=== PATIENT | male | born 1965 | race Caucasian/White ===

== ENCOUNTER 2024-03-23 10:37 | Day surgery (SDC) | payer OTHER ==
[~2024-03-23] VITALS: Ht 182.9 cm; Wt 63.3 kg
[~2024-03-23 10:37] MED LIST: LR 1,000 ML IV SCH
[2024-03-23] MEDS ORDERED: NORVASC 5MG5 MG/TAB PO (11:12)
[2024-03-23] MEDS ORDERED: PREDNISONE 5MG5 MG PO (11:12)
[2024-03-23] MEDS ORDERED: PERCOCET 325 MG1 TA2 PO (11:13)
[2024-03-23] MEDS ORDERED: DECADRON 4MG TAB4 MG PO (11:14)
[2024-03-23 11:39] VITALS: BP 144/81; PULSE 93; TEMP 98.1
[2024-03-23] MEDS ORDERED: Glycopyrrolate 0.2 MG/ML 1 ML VIAL ONE (12:03)
[2024-03-23] MEDS ORDERED: Ondansetron 4 MG/2 ML VIAL ONE (12:03)
[2024-03-23] MEDS ORDERED: NS 10 ML IV ONE (12:03)
[2024-03-23] MEDS ORDERED: Midazolam 2 MG/2 ML VIAL ONE (12:04)
[2024-03-23] MEDS ORDERED: fentaNYL 50 MCG/ML 2 ML VIAL ONE (12:04)
[2024-03-23] MEDS ORDERED: BUPivacaine PF 0.5% w EPI (1:200,000) 10 ML VIAL IJ ONE (13:00)
[2024-03-23 13:36] VITALS: BP 118/71; PULSE 96; TEMP 97.6
[2024-03-23 13:51] VITALS: BP 129/76; PULSE 89
[2024-03-23 14:06] VITALS: BP 136/77; PULSE 95
--- NOTE | 2024-03-23 15:04 | NUR ---
1336: PT TO [facility]AY 4 PER CART FROM OR. REPORT RECEIVED. VSS. RIGHT CHEST PORT INSERTION SITE INCISION C/D/I. CLOSED WITH SKIN GLUE. PT ALERT AND ORIENTED. DENIES PAIN OR NAUSEA. REQUESTING COFFEE AND CRACKERS. PT DENIES ANY FURTHER NEEDS AT THIS TIME. RESTING IN COT. CALL LIGHT IN REACH. ELISEO AT BEDSIDE. 1351: PT ALERT AND ORIENTED.VSS SURGICAL SITE REMAINS C/D/I. PT DENIES PAIN. TOLERATING COFFEE AND CRACKERS. DENIES NAUSEA. NO FURTHER NEEDS NOTED. RESTING IN COT. CALL LIGHT IN REACH. ELISEO AT BEDSIDE. 1406: PT ALERT AND ORIENTED. VSS. SURGICAL SITE REMAINS C/D/I. PT DENIES PAIN. CONTINUES TO TOLERATE COFFEE AND CRACKERS. DENIES NAUSEA. NO FURTHER NEEDS NOTED. RESTING IN COT. CALL LIGHT IN REACH. ELISEO AT BEDSIDE. 1422: IV DC'D AT THIS TIME. PT AMBULTED TO THE BATHROOM WITH STAND-BY ASSIST. PT DENIES ASSISTANCE WITH DRESSING. 1433: DISCHARGE EDUCATION COMPLETED. PT STATED UNDERSTANING OF HOME AND FOLLOW-UP CARE. DISCHARGE PAPERWORK GIVEN TO PT. 1437: PT OFF UNIT PER WHEELCHAIR. PT DC'D TO HOME WITH FAMILY PER PERSONAL VEHICLE.
== END 2024-03-23 14:37 | disposition home or self-care (01) ==
LOC: SDCO 10:37
DX: C61 Malignant neoplasm of prostate (principal); C79.51 Secondary malignant neoplasm of bone; F17.210 Nicotine dependence, cigarettes, uncomplicated
CPT/HCPCS: C1788; J0690; J1644; J2250; J2405; J2704; J3010; J7120